=== PATIENT | male | born 1970 | race Hispanic/Latino ===

== ENCOUNTER 2017-11-10 22:23 | Emergency (ER) | payer SELFPAY ==
[2017-11-10 23:01] LABS: BASOPHILS % (AUTO) 0.7 % (0.0-5.0); EOSINOPHILS % (AUTO) 7.2 % (0.0-8.0); HEMATOCRIT 38.6 % (42-54); LYMPHOCYTES % (AUTO) 16.1 % (21.0-51.0); MEAN CORPUSCULAR HGB CONC 33.2 g/dL (32.0-36.0); MEAN CORPUSCULAR VOLUME 84.2 fL (79-99); MONOCYTES % (AUTO) 7.2 % (3.0-13.0); NEUTROPHILS % (AUTO) 68.8 % (40.0-77.0); PLATELET COUNT (AUTO) 252 K/uL (130-400); RED BLOOD CELL COUNT(AUTO) 4.58 MIL/uL (4.50-6.20); WHITE BLOOD COUNT (AUTO) 9.8 K/uL (4.8-10.8)
[2017-11-10] MEDS ORDERED: KETOROLAC TROMETHAMINE 15MG/ML ONE (23:02)
[2017-11-10] MEDS ORDERED: SODIUM CHLORIDE 0.9% 1000ML 1,000 ML IV ONE (23:02)
[2017-11-10] MEDS ORDERED: CLINDAMYCIN 600 MG/D5% WATER 50 ML IV ONE (23:02)
[2017-11-10 23:11] LABS: CREATININE 1.2 mg/dL (0.5-1.5); POTASSIUM 3.8 mmol/L (3.5-5.1)
[2017-11-10 23:16] LABS: ALBUMIN 3.5 g/dL (3.5-5.0); BILIRUBIN,TOTAL 0.4 mg/dL (0.2-1.0); TOTAL PROTEIN, SERUM 7.3 g/dL (6.0-8.3)
== END 2017-11-11 01:10 | disposition home or self-care (01) ==
LOC: EDH 22:23
DX: S80.862A Insect bite (nonvenomous), left lower leg, initial encounter (principal); S80.861A Insect bite (nonvenomous), right lower leg, initial encounter; L03.116 Cellulitis of left lower limb; L03.115 Cellulitis of right lower limb; I10 Essential (primary) hypertension; Z72.0 Tobacco use; W57.XXXA Bitten or stung by nonvenomous insect and other nonvenomous arthropods, initial encounter; Y93.89 Activity, other specified; Y92.89 Other specified places as the place of occurrence of the external cause; Y99.8 Other external cause status
CPT/HCPCS: 36415; 80053; 83605; 85025; 87040 ×2; 96365; 96375; 99284; J1885; J3490; J7030